=== PATIENT | female | born 1990 | race Caucasian/White ===

== ENCOUNTER 2017-01-14 09:00 | Emergency (ER) | payer OTHER ==
[~2017-01-14] VITALS: Ht 165.1 cm; Wt 86.2 kg
[~2017-01-14 09:00] MED LIST: AMOXICILLIN500 MG PO; TOBREX OPHTH S2.5 ML OPH; VICODIN ES 7501 TAB PO
[2017-01-14] MEDS ORDERED: PENICILLIN VK500 MG PO (09:09)
[2017-01-14] MEDS ORDERED: Peridex 473 ML473 ML PO (09:09)
[2017-01-14] MEDS ORDERED: NAPROSYN500 MG PO (09:09)
[2017-01-14] MEDS ORDERED: JULEBER 28 DAY1 EACH PO (09:13)
== END 2017-01-14 11:00 | disposition home or self-care (01) ==
LOC: ED 09:00
DX: K02.9 Dental caries, unspecified (principal); R03.0 Elevated blood-pressure reading, without diagnosis of hypertension; Z79.899 Other long term (current) drug therapy

== ENCOUNTER 2018-02-03 21:07 | Emergency (ER) | payer SELFPAY ==
[~2018-02-03] VITALS: Ht 165.1 cm; Wt 95.3 kg
[~2018-02-03 21:07] MED LIST changes: +JULEBER 28 DAY1 EACH PO; +NAPROSYN500 MG PO; +PENICILLIN VK500 MG PO; +Peridex 473 ML473 ML PO
== END 2018-02-03 21:39 | disposition home or self-care (01) ==
LOC: ED 21:07
DX: S61.412A Laceration without foreign body of left hand, initial encounter (principal); Z79.899 Other long term (current) drug therapy; W26.0XXA Contact with knife, initial encounter; Y93.89 Activity, other specified; Y92.009 Unspecified place in unspecified non-institutional (private) residence as the place of occurrence of the external cause; Y99.8 Other external cause status

== ENCOUNTER 2019-11-11 21:54 | Emergency (ER) | payer OTHER ==
[~2019-11-11] VITALS: Ht 165.1 cm; Wt 102.1 kg
[2019-11-13 07:07] LABS: HEPATITIS B SURFACE AB Reactive (.); HEPATITIS B SURFACE AG Negative (Negative); HEPATITIS C AB <0.1 (0.0-0.9)
== END 2019-11-11 22:25 | disposition home or self-care (01) ==
LOC: ED 21:54
PROVIDERS: Physician Assistant
DX: S61.032A Puncture wound without foreign body of left thumb without damage to nail, initial encounter (principal); Z79.899 Other long term (current) drug therapy; W46.1XXA Contact with contaminated hypodermic needle, initial encounter; Y93.89 Activity, other specified; Y92.128 Other place in nursing home as the place of occurrence of the external cause; Y99.8 Other external cause status

== ENCOUNTER 2025-03-24 17:13 | Emergency (ER) | payer SELFPAY ==
[~2025-03-24] VITALS: Ht 165.1 cm; Wt 97.1 kg
[2025-03-24] MEDS ORDERED: hydrALAZINE hydrochloride 20 MG/ML VIAL IV ONE (22:10)
[2025-03-24 22:32] LABS: BASO # 0.1 10*3/uL (0.0-0.1); BASO % 0.6 % (0.0-1.0); EOS # 0.2 10*3/uL (0.0-0.4); EOS % 1.6 % (1.0-4.0); MEAN CELL VOLUME 83.6 fl (81.0-99.0); MEAN CORPUSCULAR HGB 28.0 pg (27.0-31.0); MEAN PLATELET VOLUME 10.1 fl (9.6-12.3); MONO # 1.0 10*3/uL (0.1-1.0); MONO % 8.1 % (3.0-9.0); NEUT # 7.5 10*3/uL (2.3-7.9); NEUT % 63.8 % (47.0-73.0); NUCLEATED RED BLOOD CELL 0.0 % (0.0-0.0); NUCLEATED RED BLOOD CELL 0.0 10*3/uL (0.0-0.0); PLATELET COUNT AUTOMATED 278 10*3/uL (130-400); RED CELL DISTRI WIDTH 13.1 % (0-14.5)
[2025-03-24 22:51] LABS: BUN 10 mg/dl (9-23)
[2025-03-24] MEDS ORDERED: METHOCARBAMOL500 M1 PO (23:05)
== END 2025-03-24 23:11 | disposition home or self-care (01) ==
LOC: ED 17:13
PROVIDERS: Nurse Practitioner Family
DX: S16.1XXA Strain of muscle, fascia and tendon at neck level, initial encounter (principal); S06.9X9A Unspecified intracranial injury with loss of consciousness of unspecified duration, initial encounter; R42 Dizziness and giddiness; I10 Essential (primary) hypertension; Z79.899 Other long term (current) drug therapy; W22.09XA Striking against other stationary object, initial encounter; Y93.89 Activity, other specified; Y92.89 Other specified places as the place of occurrence of the external cause; Y99.8 Other external cause status